=== PATIENT | male | born 1990 | race Caucasian/White ===

== ENCOUNTER 2017-12-29 18:40 | Emergency (ER) | payer OTHER ==
--- NOTE | 2017-12-29 19:24 | EDPHY ---
H & P Stated Complaint: abd pain since tuesday, liquid diarrhea Time Seen by Provider: 12/29/17 18:50 HPI/ROS: CHIEF COMPLAINT: Diarrhea with sense of abdominal bloating HISTORY OF PRESENT ILLNESS: This is a 27-year-old male who is in previously good health. He has never required any GI workup. He is not want to take any antacids nor get heartburn. 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 However he has had no sequelae from that. Of note is that he had a gallbladder removal at time as a prior history of appendectomy. That was in 2014. 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 Where as he lives here he was driving back with his [place] and took some [address] However of note is that 5 days ago shortly after eating at [employer] he developed some diarrhea illness. This was accompanied by the general sense of abdominal bloating. There has been no constipation. He has had no tenesmus. He has had some urgency. There has been no mucus. The discomfort in the abdomen is diffuse, widespread, waxing and waning, mild to moderate, not the point where he took anything for it. It does not radiate to the back. Has been going on for 5 days. The diarrhea has been 4-5 times daily compared to his once daily formed stool. Is liquid in nature and essentially very dark. He has not taken any Pepto- Bismol. Travel: None Others: None Antibiotics: None Bad Food: None Bad Water: None Recent Surgery: None REVIEW OF SYSTEMS: Constitutional: No fever, no chills. Eyes: No discharge No diplopia ENT: No sore throat. Cardiovascular: No chest pain, no palpitations. Respiratory: No cough, shortness of breath, or wheezing. Gastrointestinal: See above Genitourinary: No hematuria or frequency. Musculoskeletal: No back pain. Skin: No rashes. Neurological: No headache. 10 point ROS otherwise negative Source: Patient - Medical/Surgical History Hx Asthma: No Hx Chronic Respiratory Disease: No Hx Diabetes: No Hx Cardiac Disease: No Hx Renal Disease: No Hx Cirrhosis: No Hx Alcoholism: No Hx HIV/AIDS: No Hx Splenectomy or Spleen Trauma: No Other PMH: liver donor 2012, gall bladder, appy, addenoids - Family History Significant Family History: No pertinent family hx - Social History Smoking Status: Never smoked Alcohol Use: None Drug Use: None - Physical Exam Exam: General Appearance: Alert, no distress. Afebrile. Normal phonation. No respiratory distress. Eyes: Pupils equal and round no pallor or injection. No icterus ENT, Mouth: Mucous membranes moist Pharynx without erythema or exudate. TM Clear. Neck: No adenopathy. Supple. No JVD. Trachea in midline. Respiratory: There are no retractions, lungs are clear to auscultation. Chest wall: Nontender to palpation. No crepitus. Cardiovascular: Regular rate and rhythm. Abdomen: Soft and nontender, somewhat distended as the abdomen is flat only for such as bleeding, muscular man. No masses, bowel sounds normal. . Genitourinary: Descended bilaterally. Circumcised. No scrotal edema or erythema or swelling. Neurological: Ox3. No motor weakness. Sensation intact. Gait nl. Skin: Warm and dry, no rashes. Musculoskeletal: No joint swelling. Extremities: No edema. Homans sign negative. No cords. Psychiatric: Normal affect. Patient is oriented X 3. There is no agitation Constitutional: Initial Vital Signs Temperature (C) 36.7 C 12/29/17 18:45 Heart Rate 77 12/29/17 18:45 Respiratory Rate 18 12/29/17 18:45 Blood Pressure 110/75 12/29/17 18:45 O2 Sat (%) 100 12/29/17 18:45 O2 Delivery Mode Room Air Allergies/Adverse Reactions: No Known Allergies Allergy (Unverified 12/29/17 18:45) Home Medications: Medication Instructions Recorded Loperamide HCl [Imodium 2 mg (*)] 2 mg PO PRN PRN #10 cap 12/29/17 Omeprazole 40 mg PO DAILY #14 capsule. 12/29/17 Medical Decision Making ED Course/Re-evaluation: Here he produced a soft stool that had a bit of a slimy nature to it. It sort of took the shape of the container. CBC showed Hgb of 15.5. no old values for comparison. Differential Diagnosis: Differential diagnosis includes, but is not limited to: Gastroenteritis, dehydration, diverticulitis, hepatitis, pancreatitis, gastritis , mesenteric adenitis, food poisoning, bacterial dysentery, upper GI bleeding. - Data Points Point of Care Test Results: CBC CBC Collection Date 12/29/17 CBC Collection Time 20:05 WBC 5.7 RBC 5.02 HGB 15.5 HCT 45.7 PLT 199 Neut # 2.9 Neut 49.7 LYMPH # 2.3 LYMPH 40.7 Other WBC # 0.5 Other WBC 9.6 MCV 91 Departure - Departure Disposition: Home, Routine, Self-Care Clinical Impression: Diarrhea, Upper GI bleeding Condition: Good Instructions: Loperamide (By mouth), Acute Diarrhea (ED) Additional Instructions: Some venous specimen when available to the [facility] lab. Contact GI for follow-up Take Prilosec 40 mg daily, this is twice the [id number] dose. This is the treatment in case this is some form of acid peptic disease. It will not mask other problems. Become very meticulous in hand washing. Washer 20 sec at a time. Also, do not share towels. Finally, wash surfacess at home with Lysol As you have been doing, avoid caffeine and excessive juices. Referrals: NONE *PRIMARY CARE P,. [Primary Care Provider] - As per Instructions Светлана Price MD [Medical Doctor] - As per Instructions Stand Alone Forms: Work Excuse Prescriptions: Loperamide HCl [Imodium 2 mg (*)] 2 mg PO PRN PRN #10 cap PRN Reason: Diarrhea/Loose Stools Omeprazole 40 mg PO DAILY #14 capsule.
[2017-12-29 20:43] VITALS: BP 123/54
== END 2017-12-29 20:43 | disposition home or self-care (01) ==
LOC: CED 18:40
DX: R19.7 Diarrhea, unspecified (principal); K92.2 Gastrointestinal hemorrhage, unspecified